=== PATIENT | female | born 1950 | race Asian ===

== ENCOUNTER 2020-10-11 16:33 | Emergency (ER) | payer MEDICARE, MEDICAID ==
[~2020-10-11] VITALS: Ht 157.5 cm; Wt 45.5 kg
[2020-10-11 17:34] LABS: BASOPHILS % (AUTO) 1.5 % (0.0-2.0); EOSINOPHILS % (AUTO) 2.9 % (1.0-6.0); HEMOGLOBIN 12.3 g/dL (12.0-16.0); LYMPHOCYTES # (AUTO) 1.4 K/uL (1.0-4.8); LYMPHOCYTES % (AUTO) 29.4 % (22.0-44.0); MEAN CORPUSCULAR HEMOGLOBIN 31.7 pg (26.0-34.0); MEAN CORPUSCULAR HGB CONC 33.1 G/dL (31.0-37.0); MEAN CORPUSCULAR VOLUME 96 fL (80-100); MONOCYTES # (AUTO) 0.4 K/uL (0.1-1.0); MONOCYTES % (AUTO) 8.6 % (2.0-9.0); NEUTROPHILS # (AUTO) 2.8 K/uL (1.8-7.7); NEUTROPHILS % (AUTO) 57.6 % (40.0-70.0); PLATELET COUNT (AUTO) 236 K/uL (150-450); RED BLOOD CELL COUNT(AUTO) 3.86 MIL/uL (4.00-5.20); RED CELL DISTRIBUTION WIDTH 12.5 % (11.5-14.5)
[2020-10-11 17:44] LABS: CREATININE 1.13 mg/dL (0.60-1.30); POTASSIUM 4.4 mmol/L (3.5-5.1)
[2020-10-11 17:49] LABS: ALBUMIN 4.2 g/dL (3.4-5.0); BILIRUBIN,TOTAL 0.9 mg/dL (0.1-1.0); MAGNESIUM 1.9 mg/dL (1.80-2.40); TOTAL PROTEIN, SERUM 8.5 g/dL (6.4-8.2)
[2020-10-11 18:54] LABS: APPEARANCE,URINE CLEAR (CLEAR); BILIRUBIN,URINE NEGATIVE (NEGATIVE); GLUCOSE, URINE (UA) NEGATIVE (NEGATIVE); KETONES,URINE NEGATIVE (NEGATIVE); LEUKOCYTE ESTERASE ,URINE NEGATIVE (NEGATIVE); NITRATE,URINE NEGATIVE (NEGATIVE); OCCULT BLOOD,URINE SMALL (NEGATIVE); PROTEIN,URINE NEGATIVE (NEGATIVE); UROBILINOGEN,URINE 0.2 mg/dL (<=1.0)
[2020-10-11 19:09] LABS: BACTERIA,URINE None Seen /HPF (None Seen); RBC,URINE 0-2 /HPF (0-2); SQUAMOUS EPITHELIAL CELL,UR Rare /LPF (None Seen); WBC,URINE 0-2 /HPF (0-5)
[2020-10-11 20:35] VITALS: BP 117/63
== END 2020-10-11 20:55 | disposition home or self-care (01) ==
LOC: EMS 16:46
DX: F41.9 Anxiety disorder, unspecified (principal); R45.851 Suicidal ideations; I10 Essential (primary) hypertension; E78.00 Pure hypercholesterolemia, unspecified; Z90.89 Acquired absence of other organs; Z88.6 Allergy status to analgesic agent; Z88.5 Allergy status to narcotic agent
CPT/HCPCS: 83735; 93005; 99285; 36415-L1; 36415-TC; 71045-TC

== ENCOUNTER 2021-06-09 02:28 | Emergency (ER) | payer MEDICARE, MEDICAID ==
[~2021-06-09] VITALS: Ht 154.9 cm; Wt 61.1 kg
[2021-06-09] MEDS ORDERED: LIDO1ADH7 TP (02:45)
[2021-06-09] MEDS ORDERED: LIDOCAINE 5% TRANSDERMAL PATCH TD ONE (04:00)
[2021-06-09] MEDS ORDERED: ACETAMINOPHEN/CODEINE 300-30 MG TABLET PO ONE (05:00)
[2021-06-09] MEDS ORDERED: CODEINE SULFATE 30 MG TABLET PO ONE (05:00)
[2021-06-09 05:21] VITALS: BP 111/65
== END 2021-06-09 05:47 | disposition home or self-care (01) ==
LOC: EMS 02:34
DX: M54.50 Low back pain, unspecified (principal); I10 Essential (primary) hypertension; E78.00 Pure hypercholesterolemia, unspecified; Z88.6 Allergy status to analgesic agent
CPT/HCPCS: 72100; 99283